=== PATIENT | female | born 1995 | race Caucasian/White ===

== ENCOUNTER 2021-11-16 22:34 | Emergency (ER) | payer OTHER ==
[2021-11-17 01:26] LABS: HEMOGLOBIN 8.8 gm/dl (12.3-15.3); RED BLOOD COUNT 2.81 M/UL (4.00-5.10); WHITE BLOOD COUNT 5.2 K/UL (4.5-11.0)
== END 2021-11-17 02:00 | disposition left against medical advice (07) ==
LOC: ER1 22:34
PROVIDERS: Emergency Medicine
DX: N18.6 End stage renal disease (principal); R29.6 Repeated falls; Z88.0 Allergy status to penicillin; Z99.2 Dependence on renal dialysis; Z79.899 Other long term (current) drug therapy; W19.XXXA Unspecified fall, initial encounter
CPT/HCPCS: 80053; 84439; 84443; 85025; 93005; 99283